=== PATIENT | female | born 1985 | race Caucasian/White ===

== ENCOUNTER 2018-12-10 03:08 | Emergency (ER) | payer BC ==
[2018-12-10] MEDS ORDERED: HYDROCODONE/ACETAMINOPHEN 5-325 MG TABLET PO ONE (03:41)
--- NOTE | 2018-12-10 03:41 | RADIOLOGY REPORT (SQ) ---
EXAM DESCRIPTION: XR FOOT 3 OR MORE VIEWS COMPLETED DATE/TME: 12/10/2018 00:00 CLINICAL HISTORY: 33 years, Female, twisted foot at 0000 COMPARISON: None. NUMBER OF VIEWS: 3 TECHNIQUE: 3 views left foot LIMITATIONS: None. FINDINGS: Negative for acute fracture or dislocation. Degenerative change of the talonavicular joint. Chronic deformity of the distal fifth metatarsal. Joint spaces are otherwise preserved. Mild soft tissue swelling. Tiny calcaneal spurs IMPRESSION: No acute osseous abnormality copyright 2010 [employer]- All Rights Reserved
--- NOTE | 2018-12-10 03:44 | ER Document Report ---
HPI - HPI Patient complains to provider of: foot injury Time Seen by Provider: 12/10/18 03:34 Onset: Just prior to arrival Onset/Duration: Sudden Quality of pain: Achy Pain Level: 5 Context: Patient states she was walking and accidentally tripped over a manhole cover. Patient complains of left foot pain. Patient denies any other injury. Associated Symptoms: Other - Left foot injury Exacerbated by: Standing, Movement, Walking Relieved by: Denies Similar symptoms previously: No Recently seen / treated by doctor: No - ROS ROS below otherwise negative: Yes Systems Reviewed and Negative: Yes All other systems reviewed and negative - GASTROINTESTINAL Gastrointestinal: DENIES: Nausea - REPRODUCTIVE LMP: hyst Reproductive: DENIES: : - MUSCULOSKELETAL Musculoskeletal: REPORTS: Extremity pain, Swelling - DERM Skin Color: Normal Skin Problems: None Past Medical History - General Information source: Patient - Social History Smoking Status: Current Every Day Smoker Frequency of alcohol use: None Drug Abuse: Marijuana, Methamphetamine Occupation: None Lives with: Spouse/Significant other Family History: Reviewed & Not Pertinent Patient has suicidal ideation: No Patient has homicidal ideation: No - Past Medical History Cardiac Medical History: Reports: Hx Hypertension GI Medical History: Reports: Hx Gastroesophageal Reflux Disease Psychiatric Medical History: Reports: Hx Anxiety, Hx Bipolar Disorder Past Surgical History: Reports: Hx Hysterectomy, Hx Orthopedic Surgery, Hx Tonsillectomy Vertical Provider Document - CONSTITUTIONAL Agree With Documented VS: Yes Exam Limitations: No Limitations General Appearance: WD/WN, No Apparent Distress - INFECTION CONTROL TRAVEL OUTSIDE OF THE [place] IN LAST 30 DAYS: No - HEENT HEENT: Atraumatic - NECK Neck: Normal Inspection - RESPIRATORY Respiratory: No Respiratory Distress - CARDIOVASCULAR Pulses: Normal: Dorsalis pedis - MUSCULOSKELETAL/EXTREMETIES Musculoskeletal/Extremeties: MAEW, Tender - Left foot tenderness over cuneiforms and base of the left fifth metatarsal. No deformity, Edema - NEURO Level of Consciousness: Awake, Alert, Appropriate Motor/Sensory: No Motor Deficit - DERM Integumentary: Warm, Dry Course - Re-evaluation Re-evalutation: 12/10/18 03:45 Patient without any acute fracture. Will immobilize and refer to orthopedics for any persistent pain or problems. - Vital Signs Vital signs: Temp Pulse Resp BP Pulse Ox 97.3 F 107 H 18 142/83 H 100 12/10/18 03:13 12/10/18 03:13 12/10/18 03:13 12/10/18 03:13 12/10/18 03:13 - Diagnostic Test Radiology reviewed: Image reviewed, Reports reviewed Procedures - Immobilization Left Foot Pre-Proc Neuro Vasc Exam: Normal Immobilizer type: Leif wrap, Post-op shoe Performed by: PCT Post-Proc Neuro Vasc Exam: Normal Alignment checked and good: Yes Discharge - Discharge Clinical Impression: Sprain of left foot Qualifiers: Encounter type: initial encounter Qualified Code(s): S93.602A - Unspecified sprain of left foot, initial encounter Condition: Stable Disposition: HOME, SELF-CARE Instructions: Leif Wrap ([facility]), Use of Crutches ([facility]), Ice Packs ([facility]), Post-Op Shoe ([facility]), Sprain ([facility]) Additional Instructions: Return immediately for any new or worsening symptoms Followup with your primary care provider, call tomorrow to make a followup appointment Weightbearing as tolerated Follow-up with orthopedics for any persistent pain or problems Prescriptions: Naproxen [Naprosyn 250 Nmg Tablet] 1 tab PO BID #14 tablet Forms: Smoking Cessation Education Referrals: JASS LEIVA MD [ACTIVE PROVISIONAL STAFF] - Follow up as needed
[2018-12-10 04:03] VITALS: BP 132/72
== END 2018-12-10 04:03 | disposition home or self-care (01) ==
LOC: ER 03:08
DX: S93.602A Unspecified sprain of left foot, initial encounter (principal); X50.0XXA Overexertion from strenuous movement or load, initial encounter; F17.200 Nicotine dependence, unspecified, uncomplicated; F12.10 Cannabis abuse, uncomplicated; F15.10 Other stimulant abuse, uncomplicated; I10 Essential (primary) hypertension
CPT/HCPCS: 99283

== ENCOUNTER 2019-08-06 18:56 | Emergency (ER) | payer SELFPAY ==
[2019-08-06] MEDS ORDERED: ALBUTEROL SULFATE HFA (90 MCG/PUFF) 8 GM MDI (1 MDI/ER DISP) IH ONE (21:13)
--- NOTE | 2019-08-06 21:16 | ER Document Report ---
HPI - HPI Patient complains to provider of: med refill Time Seen by Provider: 08/06/19 21:09 Onset: This afternoon Onset/Duration: Better Quality of pain: No pain Context: She states she ran out of her inhaler last week. Patient states she had a panic attack which caused her to start breathing rapidly and she started to develop wheezing and became short of breath at home. Patient does have a history of anxiety as well as asthma. Patient states she presented tonight for refill of her inhaler. Patient denies any chest pain cough or cold symptoms at this time. Associated Symptoms: denies: Nonproductive cough Exacerbated by: Denies Relieved by: Denies Similar symptoms previously: Yes Recently seen / treated by doctor: No - ROS ROS below otherwise negative: Yes Systems Reviewed and Negative: Yes All other systems reviewed and negative - CONSTITUTIONAL Constitutional: DENIES: Fever - EENT EENT: DENIES: Sore Throat - CARDIOVASCULAR Cardiovascular: DENIES: Chest pain - RESPIRATORY Respiratory: DENIES: Coughing Notes: Wheezing earlier today, now resolved - GASTROINTESTINAL Gastrointestinal: DENIES: Nausea, Patient vomiting - REPRODUCTIVE Reproductive: DENIES: : - MUSCULOSKELETAL Musculoskeletal: DENIES: Back Pain - DERM Skin Color: Normal Skin Problems: None Past Medical History - General Information source: Patient - Social History Smoking Status: Current Every Day Smoker Frequency of alcohol use: None Drug Abuse: None Family History: Reviewed & Not Pertinent Pulmonary Medical History: Reports: Hx Asthma GI Medical History: Reports: Hx Gastroesophageal Reflux Disease Psychiatric Medical History: Reports: Hx Anxiety, Hx Bipolar Disorder Past Surgical History: Reports: Hx Hysterectomy, Hx Orthopedic Surgery, Hx Tonsillectomy Vertical Provider Document - CONSTITUTIONAL Agree With Documented VS: Yes Exam Limitations: No Limitations General Appearance: WD/WN, No Apparent Distress - INFECTION CONTROL TRAVEL OUTSIDE OF THE [place] IN LAST 30 DAYS: No - HEENT HEENT: Atraumatic, Normal ENT Exam, Normocephalic - NECK Neck: Normal Inspection, Supple. negative: Lymphadenopathy-Left, Lymphadenopathy-Right - RESPIRATORY Respiratory: Breath Sounds Normal, No Respiratory Distress, Chest Non-Tender - CARDIOVASCULAR Cardiovascular: Regular Rate, Regular Rhythm, No Murmur - BACK Back: Normal Inspection - MUSCULOSKELETAL/EXTREMETIES Musculoskeletal/Extremeties: MAEW - NEURO Level of Consciousness: Awake, Alert, Appropriate Motor/Sensory: No Motor Deficit - DERM Integumentary: Warm, Dry, No Rash Course - Re-evaluation Re-evalutation: 08/06/19 21:14 Patient without any wheezing at this time although does have a known history of asthma and ran out of her inhaler. Patient reports having a panic attack earlier today. Patient denies any SI or HI. Patient agreeable with discharge plan of care. Discussed worsening symptoms patient should return immediately for. Discharge - Discharge Clinical Impression: Medication refill, Panic attack Asthma Qualifiers: Asthma severity: unspecified severity Asthma persistence: unspecified Asthma complication type: unspecified Qualified Code(s): J45.909 - Unspecified asthma, uncomplicated Condition: Stable Disposition: HOME, SELF-CARE Instructions: Asthma ([facility]), Inhaled Bronchodilators ([facility]), Panic Attack ([facility]) Additional Instructions: Return immediately for any new or worsening symptoms Followup with your primary care provider, call tomorrow to make a followup appointment Referrals: [facility] [Provider Group] - Follow up as needed
[2019-08-06 21:18] VITALS: BP 159/97
[2019-08-06] MEDS ORDERED: ALBUTEROL SULFATE HFA (90 MCG/PUFF) 8 GM MDI IH ONE (22:00)
== END 2019-08-06 21:22 | disposition home or self-care (01) ==
LOC: ER 18:56
DX: F41.0 Panic disorder [episodic paroxysmal anxiety] (principal); J45.909 Unspecified asthma, uncomplicated
CPT/HCPCS: 99284; J3490

== ENCOUNTER 2019-09-17 20:16 | Emergency (ER) | payer SELFPAY ==
[2019-09-17 20:20] VITALS: BP 154/89
[2019-09-17] MEDS ORDERED: PREDNISONE 20 MG TABLET PO ONE (21:08)
[2019-09-17] MEDS ORDERED: DIPHENHYDRAMINE HCL 25 MG CAPSULE PO ONE (21:08)
--- NOTE | 2019-09-17 21:14 | ER Document Report ---
HPI - HPI Time Seen by Provider: 09/17/19 21:07 Context: Patient is a 34-year-old female that comes to the emergency department for chief complaint of insect bites. She states that she visited her fielsa's brother and she believes she was bitten by bedbugs at that time, on the same day later she was bitten by ants mainly on the left elbow and on the feet and ankles. She states these are very itchy and red and irritated. She denies pain, spreading redness, fever/chills, swelling of the throat, difficulty breathing, or any other complaints. She denies or any daily medications. - REPRODUCTIVE Reproductive: DENIES: : Past Medical History - General Information source: Patient - Social History Smoking Status: Never Smoker Frequency of alcohol use: None Drug Abuse: None Lives with: Family Family History: Reviewed & Not Pertinent - Past Medical History Cardiac Medical History: Reports: Hx Hypertension Pulmonary Medical History: Reports: Hx Asthma GI Medical History: Reports: Hx Gastroesophageal Reflux Disease Psychiatric Medical History: Reports: Hx Anxiety, Hx Bipolar Disorder Past Surgical History: Reports: Hx Hysterectomy, Hx Orthopedic Surgery, Hx Tonsillectomy - Immunizations Hx Diphtheria, Pertussis, Tetanus Vaccination: Yes Vertical Provider Document - CONSTITUTIONAL General Appearance: WD/WN, No Apparent Distress - INFECTION CONTROL TRAVEL OUTSIDE OF THE [place] IN LAST 30 DAYS: No - HEENT HEENT: Atraumatic, Normal ENT Exam - Patent airway, unremarkable oropharyngeal exam, Normocephalic - NECK Neck: Normal Inspection - RESPIRATORY Respiratory: Breath Sounds Normal, No Respiratory Distress - CARDIOVASCULAR Cardiovascular: Regular Rate, Regular Rhythm - GI/ABDOMEN Gastrointestinal: Abdomen Soft, Abdomen Non-Tender - BACK Back: Normal Inspection - MUSCULOSKELETAL/EXTREMETIES Musculoskeletal/Extremeties: MAEW, FROM, Non-Tender - NEURO Level of Consciousness: Awake, Alert, Appropriate - DERM Integumentary: Warm, Dry, Rash - There are scattered insect bites over the an kles and slightly over the left tibia and left elbow, these are most consistent with ant bites, I do not see any induration, fluctuance, significant erythema, there is no noted tenderness, full range of motion of all joints, normal distal neurovascular exam. No streaking, no concerning swelling, no pustules, no bulla, no other concerning findings. Course - Re-evaluation Re-evalutation: Patient's exam is most consistent with ant bites without secondary allergic reaction, infection, or any other concerning findings. No overt bedbug bites or any other concerning findings noted. Discussed with patient. Discussed treatment with steroids, antihistamines, discussed not scratching, discussed return precautions. Patient states understanding and agreement. I was preparing patient's discharge instructions and scripts when I was told patient suddenly left the department without her paperwork although she had already been discharged and I had already discussed everything with her. - Vital Signs Vital signs: Temp Pulse Resp BP Pulse Ox 98.2 F 94 16 154/89 H 97 09/17/19 20:18 09/17/19 20:18 09/17/19 20:18 09/17/19 20:18 09/17/19 20:18 Discharge - Discharge Clinical Impression: Insect bites Qualifiers: Encounter type: initial encounter Site of insect bite: unspecified site Qualified Code(s): W57.XXXA - Bitten or stung by nonvenomous insect and other nonvenomous arthropods, initial encounter Condition: Stable Disposition: HOME, SELF-CARE Additional Instructions: Your evaluation is consistent with insect bites, probably ant bites and possibly bedbug bites as well. No secondary infection or other concerning findings are seen. Take the prednisone as prescribed to completion, take the diphenhydramine at night and the cetirizine during the day. Try not to scratch because this can cause infection. Follow-up with primary care. Return if you worsen including developing or spreading redness, pain, fever, or any other concerning symptoms.
== END 2019-09-17 21:18 | disposition home or self-care (01) ==
LOC: ER 20:16
DX: S50.362A Insect bite (nonvenomous) of left elbow, initial encounter (principal); W57.XXXA Bitten or stung by nonvenomous insect and other nonvenomous arthropods, initial encounter; I10 Essential (primary) hypertension; J45.909 Unspecified asthma, uncomplicated
CPT/HCPCS: 99283

== ENCOUNTER 2019-11-12 12:08 | Emergency (ER) | payer SELFPAY ==
[2019-11-12 12:41] VITALS: BP 141/90
--- NOTE | 2019-11-12 13:51 | ER Document Report ---
ED GI/ - General Chief Complaint: Nausea Stated Complaint: NAUSEA Time Seen by Provider: 11/12/19 13:30 Notes: CHIEF COMPLAINT: Cough shortness of breath nausea HPI: 34-year-old female presenting with 2 to 3 days of a multitude of symptoms. Patient has had slight cough slight shortness of breath. She has had nausea. No abdominal pain. One episode of vomiting. No diarrhea. No dysuria. ROS: See HPI - all other systems were reviewed and are otherwise negative Constitutional: no fever Eyes: no drainage, no blurred vision ENT: no runny nose, no sore throat Cardiovascular: no chest pain Resp: + SOB, + cough GI: + vomiting, no diarrhea, no abdominal pain : no dysuria Integumentary: no rash Allergy: no hives Musculoskeletal: no extremity pain or swelling Neurological: no numbness/tingling, no weakness MEDICATIONS: I agree with the patient medications as charted by the RN. ALLERGIES: I agree with the allergies as charted by the RN. PAST MEDICAL HISTORY/PAST SURGICAL HISTORY: Reviewed and agree as charted by RN. SOCIAL HISTORY: Reviewed and agree as charted by RN. FAMILY HISTORY: No significant familial comorbid conditions directly related to patient complaint EXAM: Reviewed vital signs as charted by RN. CONSTITUTIONAL: Alert and oriented and responds appropriately to questions. Well-appearing; well-nourished HEAD: Normocephalic; atraumatic EYES: PERRL; Conjunctivae clear, sclerae non-icteric ENT: normal nose; no rhinorrhea; moist mucous membranes; pharynx without lesions noted, no uvula edema or deviation, no tonsillar hypertrophy, phonation normal NECK: Supple without meningismus; non-tender; no cervical lymphadenopathy, no masses CARD: RRR; no murmurs, no clicks, no rubs, no gallops; symmetric distal pulses RESP: Normal chest excursion without splinting or tachypnea; breath sounds clear and equal bilaterally; no wheezes, no rhonchi, no rales, pulse oximetry 98% on room air not hypoxic ABD/GI: Normal bowel sounds; non-distended; soft, non-tender, no rebound, no guarding; no palpable organomegaly or masses. BACK: The back appears normal and is non-tender to palpation, there is no CVA tenderness EXT: Normal ROM in all joints; non-tender to palpation; no cyanosis, no effusions, no edema SKIN: Normal color for age and race; warm; dry; good turgor; no acute lesions noted NEURO: Moves all extremities equally; Motor and sensory function intact PSYCH: The patient's mood and manner are appropriate. Grooming and personal hygiene are appropriate. MDM: 34-year-old female not significantly tachypneic or hypoxic presenting with 2 to 3 days of subjective shortness of breath with slight cough. Has had slight nausea. Chest x-ray does not show evidence of infiltrate on my review. Patient does appear to have a urinary tract infection which we will treat with Keflex. She will be a person under investigation for COVID-19 at this time pending her results. Return for worsening symptoms TRAVEL OUTSIDE OF THE [place] IN LAST 30 DAYS: No - Related Data Allergies/Adverse Reactions: No Known Allergies Allergy (Verified 08/06/19 21:10) Past Medical History - Social History Smoking Status: Unknown if Ever Smoked Family History: Reviewed & Not Pertinent - Past Medical History Cardiac Medical History: Reports: Hx Hypertension Pulmonary Medical History: Reports: Hx Asthma GI Medical History: Reports: Hx Gastroesophageal Reflux Disease Psychiatric Medical History: Reports: Hx Anxiety, Hx Bipolar Disorder Past Surgical History: Reports: Hx Hysterectomy, Hx Orthopedic Surgery, Hx Tonsillectomy - Immunizations Hx Diphtheria, Pertussis, Tetanus Vaccination: Yes Physical Exam - Vital signs Vitals: Temp 98.2 F 11/12/19 12:09 Course - Re-evaluation Re-evalutation: 11/12/19 14:42 Patient appears to have a urinary tract infection. Chest x-ray does not show evidence of infiltrate. Will make sure urine culture is added. Plan to treat with Keflex, albuterol inhaler for subjective shortness of breath patient will still be a person under investigation for COVID-19 - Vital Signs Vital signs: Temp Pulse Resp BP Pulse Ox 98.1 F 90 16 141/90 H 99 11/12/19 12:40 11/12/19 12:40 11/12/19 12:40 11/12/19 12:40 11/12/19 12:40 - Laboratory Laboratory results interpreted by me: 11/12/19 14:10 Ur Leukocyte Esterase TRACE H Discharge - Discharge Clinical Impression: Cough, Person under investigation for COVID-19 Dyspnea Qualifiers: Dyspnea type: shortness of breath Qualified Code(s): R06.02 - Shortness of breath; R06.00 - Dyspnea, unspecified; R06.01 - Orthopnea UTI (urinary tract infection) Qualifiers: Urinary tract infection type: acute cystitis Hematuria presence: without hematuria Qualified Code(s): N30.00 - Acute cystitis without hematuria Condition: Stable Disposition: HOME, SELF-CARE Instructions: Cephalexin ([facility]), COVID-19 Guidance for Persons Under Investigation, Urinary Tract Infection ([facility]) Additional Instructions: Your chest x-ray did not show abnormalities. It does appear you have a urinary tract infection today. This may be causing some of your symptoms. Take the Keflex to treat the urinary infection. Take Zofran for nausea. You are considered a person under investigation for COVID-19 at this time self quarantine at home pending her test results which may take 2 to 5 days. You should receive notification from the hospital about your test results return for worsening symptoms or condition Prescriptions: Ondansetron [Zofran Odt 4 mg Tablet] 1 - 2 tab PO Q4HP PRN #10 tab.rapdis PRN Reason: Cephalexin Monohydrate [Keflex 500 mg Capsule] 500 mg PO Q6H 7 Days #28 capsule Forms: Return to Work Referrals: CASE DELACRUZ MD [COMMUNITY BASED STAFF] - Follow up as needed
[2019-11-12 14:27] LABS: APPEARANCE,URINE CLEAR; BILIRUBIN,URINE NEGATIVE (NEGATIVE); COLOR,URINE YELLOW; GLUCOSE, URINE NEGATIVE (NEGATIVE); KETONES,URINE NEGATIVE (NEGATIVE); LEUKOCYTE ESTERASE,URINE TRACE (NEGATIVE); NITRITE,URINE NEGATIVE (NEGATIVE); PROTEIN,URINE NEGATIVE (NEGATIVE); URINE SPECIFIC GRAVITY 1.015; UROBILINOGEN,URINE NEGATIVE mg/dL (<2.0)
--- NOTE | 2019-11-12 14:39 | RADIOLOGY REPORT (SQ) ---
EXAM DESCRIPTION: CHEST SINGLE VIEW IMAGES COMPLETED DATE/TIME: 11/12/2019 2:29 pm REASON FOR STUDY: cough COMPARISON: None. EXAM PARAMETERS: NUMBER OF VIEWS: One view. TECHNIQUE: Single frontal radiographic view of the chest acquired. RADIATION DOSE: NA LIMITATIONS: None. FINDINGS: LUNGS AND PLEURA: No opacities, masses or pneumothorax. No pleural effusion. MEDIASTINUM AND HILAR STRUCTURES: No masses. Contour normal. HEART AND VASCULAR STRUCTURES: Heart normal in size. Normal vasculature. BONES: No acute findings. HARDWARE: None in the chest. OTHER: No other significant finding. IMPRESSION: NO ACUTE RADIOGRAPHIC FINDING IN THE CHEST. TECHNICAL DOCUMENTATION: JOB ID: [id number] 2010 [employer]- All Rights Reserved Reading location - IP/workstation name: [email or web address]
== END 2019-11-12 15:15 | disposition home or self-care (01) ==
LOC: ER 12:08
DX: N30.00 Acute cystitis without hematuria (principal); R05 Cough; R06.01 Orthopnea; R06.02 Shortness of breath; Z20.828 Contact with and (suspected) exposure to other viral communicable diseases; I10 Essential (primary) hypertension
CPT/HCPCS: 99284; 87086; 87635; 81025; 87088; 81001; 87186; 71045; C9803